=== PATIENT | male | born 1965 | race Caucasian/White ===

== ENCOUNTER 2020-09-18 15:50 | Inpatient (IN) | payer OTHER ==
[2020-09-18 16:55] VITALS: BMI 22.4
[2020-09-18] MEDS ORDERED: MAGNESIUM CITRATE 300 ML BOTTLE PO PRN (17:49)
[2020-09-18] MEDS ORDERED: METHOCARBAMOL 500 MG TABLET PO PRN (17:49)
[2020-09-18] MEDS ORDERED: ACETAMINOPHEN 325 MG TABLET (FP) PO PRN ×2 (17:49)
[2020-09-18] MEDS ORDERED: BISMUTH SUBSALICYLATE 524 MG/30 ML UD PO PRN (17:49)
[2020-09-18] MEDS ORDERED: ONDANSETRON *ODT* 4 MG TABLET SL PRN (17:49)
[2020-09-18] MEDS ORDERED: MENTHOL/PHENOL 1 EACH UD MM PRN (17:49)
[2020-09-18] MEDS ORDERED: MAGNESIUM HYDROX 2400MG/30ML ORAL SUSPENSION 30 ML CUP PO PRN (17:49)
[2020-09-18] MEDS ORDERED: chlordiazePOXIDE HCL 25 MG CAPSULE PO PRN (17:49)
[2020-09-18] MEDS ORDERED: IBUPROFEN 400 MG TABLET (FP) PO PRN (17:49)
[2020-09-18] MEDS ORDERED: MAG HYDROX/AL HYDROX/SIMETH 30 ML UNIT-DOSE CUP PO PRN (17:49)
[2020-09-18] MEDS ORDERED: NICOTINE POLACRILEX 2 MG GUM BUC PRN (17:49)
[2020-09-18] MEDS: hydrOXYzine PAMOATE 25 MG CAPSULE (FP) PO SCH ×2 (18:58→22:10)
[2020-09-18 21:03] VITALS: BP 124/76; PULSE 104; TEMP 97.3
[2020-09-18] MEDS ORDERED: THIAMINE HCL 100 MG TABLET (FP) PO SCH (22:00)
[2020-09-18] MEDS ORDERED: MELATONIN 5 MG TABLETS PO SCH (22:00)
[2020-09-18] MEDS ORDERED: LABETALOL HCL 100 MG TABLET (FP) PO SCH (22:00)
[2020-09-18] MEDS ORDERED: chlordiazePOXIDE HCL 25 MG CAPSULE PO SCH (23:00)
[2020-09-19] MEDS ORDERED: TAMSULOSIN HCL 0.4 MG CAP PO SCH (08:30)
[2020-09-19] MEDS ORDERED: PRENATAL VITAMINS W/ FOLIC ACID TABLET (FP) PO SCH (10:00)
[2020-09-19] MEDS ORDERED: NICOTINE 21 MG/24 HOURS TOPICAL PATCH TD SCH (10:00)
[2020-09-19] MEDS ORDERED: METHYL SALICYLATE/MENTHOL OINT 30 GM TUBE TP SCH (10:00)
[2020-09-20] MEDS ORDERED: chlordiazePOXIDE HCL 25 MG CAPSULE PO SCH (05:00)
[2020-09-21] MEDS ORDERED: chlordiazePOXIDE HCL 10 MG CAPSULE PO PRN
[2020-09-21] MEDS ORDERED: chlordiazePOXIDE HCL 10 MG CAPSULE PO SCH (05:00)
[2020-09-22] MEDS ORDERED: chlordiazePOXIDE HCL 10 MG CAPSULE PO SCH (05:00)
[2020-09-23] MEDS ORDERED: chlordiazePOXIDE HCL 10 MG CAPSULE PO ONE (05:00)
== END 2020-09-18 22:45 | disposition left against medical advice (07) | DRG 770 ==
LOC: YASAS 15:50 → Y6N 18:06
PROVIDERS: ADMIT Allergy & Immunology; ATTEND Allergy & Immunology
PROC: HZ2ZZZZ Detoxification Services for Substance Abuse Treatment (ICD-10-PCS; principal; 2020-09-18)
DX: F10.230 Alcohol dependence with withdrawal, uncomplicated (principal); F10.29 Alcohol dependence with unspecified alcohol-induced disorder; F41.9 Anxiety disorder, unspecified; F32.9 Major depressive disorder, single episode, unspecified; I10 Essential (primary) hypertension; Z86.69 Personal history of other diseases of the nervous system and sense organs; Z91.19 Patient's noncompliance with other medical treatment and regimen; Z98.890 Other specified postprocedural states
CPT/HCPCS: 93005; 93010; C9803; U0003

== ENCOUNTER 2021-02-04 15:39 | Inpatient (IN) | payer OTHER ==
[2021-02-04 17:40] VITALS: BMI 22.9
[2021-02-04] MEDS ORDERED: MENTHOL/PHENOL 1 EACH UD MM PRN (18:02)
[2021-02-04] MEDS ORDERED: METHOCARBAMOL 500 MG TABLET PO PRN (18:02)
[2021-02-04] MEDS ORDERED: MAG HYDROX/AL HYDROX/SIMETH 30 ML UNIT-DOSE CUP PO PRN (18:02)
[2021-02-04] MEDS ORDERED: ONDANSETRON *ODT* 4 MG TABLET SL PRN (18:02)
[2021-02-04] MEDS ORDERED: MAGNESIUM HYDROX 2400MG/30ML ORAL SUSPENSION 30 ML CUP PO PRN (18:02)
[2021-02-04] MEDS ORDERED: MAGNESIUM CITRATE 300 ML BOTTLE PO PRN (18:02)
[2021-02-04] MEDS ORDERED: BISMUTH SUBSALICYLATE 524 MG/30 ML UD PO PRN (18:02)
[2021-02-04] MEDS ORDERED: ACETAMINOPHEN 325 MG TABLET (FP) PO PRN ×2 (18:02)
[2021-02-04] MEDS ORDERED: chlordiazePOXIDE HCL 25 MG CAPSULE PO PRN (18:03)
[2021-02-04] MEDS ORDERED: chlordiazePOXIDE HCL 25 MG CAPSULE PO ONE (18:03)
[2021-02-04] MEDS: MELATONIN 5 MG TABLETS PO SCH (22:03)
[2021-02-04] MEDS: THIAMINE HCL 100 MG TABLET (FP) PO SCH (22:03)
[2021-02-04] MEDS: chlordiazePOXIDE HCL 25 MG CAPSULE PO SCH (22:03)
[2021-02-04] MEDS: LABETALOL HCL 100 MG TABLET (FP) PO SCH (23:11)
[2021-02-05] MEDS: chlordiazePOXIDE HCL 25 MG CAPSULE PO SCH ×4 (05:21→22:05)
[2021-02-05] MEDS: TAMSULOSIN HCL 0.4 MG CAP PO SCH (09:11)
[2021-02-05] MEDS: busPIRone HCL 10 MG TABLET (FP) PO SCH (10:11)
[2021-02-05] MEDS: PRENATAL VITAMINS W/ FOLIC ACID TABLET (FP) PO SCH (10:11)
[2021-02-05] MEDS: LABETALOL HCL 100 MG TABLET (FP) PO SCH ×2 (10:11→22:04)
[2021-02-05] MEDS: THIAMINE HCL 100 MG TABLET (FP) PO SCH (22:04)
[2021-02-05] MEDS: QUEtiapine FUMARATE 100 MG TABLET (FP) PO SCH (22:05)
[2021-02-05] MEDS: MELATONIN 5 MG TABLETS PO SCH (22:05)
[2021-02-06] MEDS: chlordiazePOXIDE HCL 25 MG CAPSULE PO SCH ×4 (05:22→22:02)
[2021-02-06] MEDS: PRENATAL VITAMINS W/ FOLIC ACID TABLET (FP) PO SCH (10:17)
[2021-02-06] MEDS: busPIRone HCL 10 MG TABLET (FP) PO SCH (10:18)
[2021-02-06] MEDS: TAMSULOSIN HCL 0.4 MG CAP PO SCH (10:18)
[2021-02-06] MEDS: LABETALOL HCL 100 MG TABLET (FP) PO SCH ×2 (10:19→22:02)
[2021-02-06] MEDS: QUEtiapine FUMARATE 100 MG TABLET (FP) PO SCH (22:02)
[2021-02-06] MEDS: THIAMINE HCL 100 MG TABLET (FP) PO SCH (22:02)
[2021-02-06] MEDS: MELATONIN 5 MG TABLETS PO SCH (22:03)
[2021-02-07] MEDS ORDERED: chlordiazePOXIDE HCL 10 MG CAPSULE PO PRN
[2021-02-07] MEDS: chlordiazePOXIDE HCL 10 MG CAPSULE PO SCH ×4 (05:33→22:10)
[2021-02-07] MEDS: TAMSULOSIN HCL 0.4 MG CAP PO SCH (07:55)
[2021-02-07] MEDS: busPIRone HCL 10 MG TABLET (FP) PO SCH (10:05)
[2021-02-07] MEDS: PRENATAL VITAMINS W/ FOLIC ACID TABLET (FP) PO SCH (10:05)
[2021-02-07] MEDS: LABETALOL HCL 100 MG TABLET (FP) PO SCH ×2 (10:07→22:10)
[2021-02-07] MEDS: THIAMINE HCL 100 MG TABLET (FP) PO SCH (22:10)
[2021-02-07] MEDS: QUEtiapine FUMARATE 100 MG TABLET (FP) PO SCH (22:10)
[2021-02-07] MEDS: MELATONIN 5 MG TABLETS PO SCH (22:10)
[2021-02-08] MEDS ORDERED: chlordiazePOXIDE HCL 10 MG CAPSULE PO SCH (05:00)
[2021-02-08 06:27] VITALS: BP 131/90; PULSE 64; TEMP 97.6
[2021-02-09] MEDS ORDERED: chlordiazePOXIDE HCL 10 MG CAPSULE PO ONE (05:00)
== END 2021-02-08 08:25 | disposition home or self-care (01) | DRG 775 ==
LOC: YASAS 15:39 → Y3N 18:17
PROVIDERS: ADMIT Allergy & Immunology; ATTEND Allergy & Immunology
PROC: HZ2ZZZZ Detoxification Services for Substance Abuse Treatment (ICD-10-PCS; principal; 2021-02-04)
DX: F10.230 Alcohol dependence with withdrawal, uncomplicated (principal); F10.220 Alcohol dependence with intoxication, uncomplicated; F17.210 Nicotine dependence, cigarettes, uncomplicated; F19.282 Other psychoactive substance dependence with psychoactive substance-induced sleep disorder; F19.280 Other psychoactive substance dependence with psychoactive substance-induced anxiety disorder; F19.24 Other psychoactive substance dependence with psychoactive substance-induced mood disorder; F41.8 Other specified anxiety disorders; F32.9 Major depressive disorder, single episode, unspecified; G40.509 Epileptic seizures related to external causes, not intractable, without status epilepticus; I10 Essential (primary) hypertension; M54.5 Low back pain; G89.29 Other chronic pain; N40.0 Benign prostatic hyperplasia without lower urinary tract symptoms
CPT/HCPCS: 71045-TC-FY; C9803; U0003; U0005